=== PATIENT | male | born 1990 | race African-American/Black ===

== ENCOUNTER 2021-10-03 06:00 | Emergency (ER) | payer MEDICAID ==
[~2021-10-03] VITALS: Ht 172.7 cm; Wt 79.4 kg
--- NOTE | 2021-10-03 06:00 | NUR ---
PT BIB [facility], PREBOOK. TAKEN TO CHAIR C
[2021-10-03 06:14] VITALS: BP 150/89
--- NOTE | 2021-10-03 06:25 | NUR ---
SEEN AND EXAMINED BY KENN
[2021-10-03] MEDS ORDERED: ACET-10509 PO (06:43)
[2021-10-03 06:49] VITALS: BP 150/89
--- NOTE | 2021-10-03 06:49 | NUR ---
PATIENT BIB [facility] DE[employer]. PATIENT EXAMINED BY DR. RAMOS. PATIENT MEDICALLY CLEARED AND RELEASED IN CUSTODY IN STABLE CONDITION. ORIGINAL PRE-BOOK FORM GIVEN TO OFFICER LIZ #[id number].
== END 2021-10-03 06:49 ==
LOC: MED 06:00
DX: S93.401A Sprain of unspecified ligament of right ankle, initial encounter (principal); Z00.00 Encounter for general adult medical examination without abnormal findings; W18.30XA Fall on same level, unspecified, initial encounter; Y93.89 Activity, other specified; Y92.89 Other specified places as the place of occurrence of the external cause; Y99.8 Other external cause status
CPT/HCPCS: 73610; 99283; Q0092